=== PATIENT | male | born 1945 | race Caucasian/White ===

== ENCOUNTER 2018-10-10 18:16 | Emergency (ER) | payer MEDICARE, MEDICAID ==
[~2018-10-10] VITALS: Ht 172.7 cm; Wt 105.1 kg
[~2018-10-10 18:16] MED LIST: AMIT25TA23 PO; ASPI-611 PO; DOCU-273 PO; GEMF600T4 PO; HYDR-3968 PO; INSU100V9 SUBCUT; LISI10TA4 PO; METO25TA6 PO; NITR0.4T SL; OMEP-50 PO; SIMV20TA5 PO; TAMS0.4C32 PO
[2018-10-10 18:51] VITALS: BP 118/79
[2018-10-10] MEDS ORDERED: ketorolac trometh inj. 60 MG/2 ML VIAL IM ONE (21:30)
[2018-10-10] MEDS ORDERED: ketorolac trometh. 30mg/ml inj. IM ONE (21:35)
== END 2018-10-10 22:18 | disposition home or self-care (01) ==
LOC: ER 18:17
DX: M25.512 Pain in left shoulder (principal); I25.10 Atherosclerotic heart disease of native coronary artery without angina pectoris; J44.9 Chronic obstructive pulmonary disease, unspecified; K21.9 Gastro-esophageal reflux disease without esophagitis; E11.9 Type 2 diabetes mellitus without complications; G89.29 Other chronic pain; Z90.49 Acquired absence of other specified parts of digestive tract; Z95.1 Presence of aortocoronary bypass graft; Z98.890 Other specified postprocedural states; Z79.82 Long term (current) use of aspirin; Z79.899 Other long term (current) drug therapy; Z79.4 Long term (current) use of insulin; X50.0XXA Overexertion from strenuous movement or load, initial encounter; Y93.89 Activity, other specified; Y92.89 Other specified places as the place of occurrence of the external cause; Y99.9 Unspecified external cause status
CPT/HCPCS: 73030; 93005; 96372; 99283; J1885

== ENCOUNTER 2019-02-28 16:47 | Emergency (ER) | payer MEDICARE, MEDICAID ==
[~2019-02-28] VITALS: Ht 172.7 cm; Wt 100.0 kg
[~2019-02-28 16:47] MED LIST changes: -GEMF600T4 PO; +GEMF600T89 PO
[2019-02-28 16:55] VITALS: BP 156/73
== END 2019-02-28 20:01 | disposition home or self-care (01) ==
LOC: ER 16:47
DX: M25.512 Pain in left shoulder (principal); I25.10 Atherosclerotic heart disease of native coronary artery without angina pectoris; J44.9 Chronic obstructive pulmonary disease, unspecified; K21.9 Gastro-esophageal reflux disease without esophagitis; G89.29 Other chronic pain; M54.9 Dorsalgia, unspecified; E11.9 Type 2 diabetes mellitus without complications; Z95.1 Presence of aortocoronary bypass graft; Z79.82 Long term (current) use of aspirin; Z79.4 Long term (current) use of insulin; W01.0XXA Fall on same level from slipping, tripping and stumbling without subsequent striking against object, initial encounter; Y93.31 Activity, mountain climbing, rock climbing and wall climbing; Y92.828 Other wilderness area as the place of occurrence of the external cause; Y99.8 Other external cause status
CPT/HCPCS: 73030; 99284

== ENCOUNTER 2019-06-18 20:42 | Emergency (ER) | payer MEDICARE, MEDICAID ==
[~2019-06-18] VITALS: Ht 172.7 cm; Wt 104.0 kg
[2019-06-18] MEDS ORDERED: furosemide 20MG tablet PO ONE (20:55)
[2019-06-18 21:25] LABS: ALANINE AMINOTRANSFERASE 31 U/L (12-78); ALBUMIN 3.5 G/DL (3.4-5.0); ALKALINE PHOSPHATASE 64 IU/L (46-116); ANION GAP 9 (8-16); ASPARTATE AMINO TRANSFERASE 21 U/L (10-37); BILIRUBIN,TOTAL 0.4 MG/DL (0.1-1.0); BLOOD UREA NITROGEN 18 MG/DL (7-18); BUN/CREATININE RATIO 13.4 (5.4-32.0); CALCIUM 8.9 MG/DL (8.5-10.1); CHLORIDE 105 MMOL/L (99-107); CREATININE 1.34 MG/DL (0.60-1.10); GLUCOSE 173 MG/DL (70-104); POTASSIUM 4.2 MMOL/L (3.5-5.1); SODIUM 141 MMOL/L (135-145); TOTAL PROTEIN 6.9 G/DL (6.4-8.2); eGFR 52 ML/MIN
[2019-06-18 21:27] LABS: BASOPHILS % (AUTO) 0.4 % (0-1); EOSINOPHILS # (AUTO) 0.3 X10'3 (0-0.9); EOSINOPHILS % (AUTO) 3.6 % (0-6); HEMATOCRIT 40.8 % (42.0-52.0); HEMOGLOBIN 13.8 g/dl (14.0-17.9); LYMPHOCYTES # (AUTO) 1.9 X10'3 (1.1-4.8); LYMPHOCYTES % (AUTO) 26.6 % (21-51); MEAN CORPUSCULAR HEMOGLOBIN 29.1 PG (27.0-31.0); MEAN CORPUSCULAR HGB CONC 33.9 g/dL (33.0-36.5); MEAN CORPUSCULAR VOLUME 85.8 FL (78-98); MEAN PLATELET VOLUME 9.6 FL (7.4-10.4); MONOCYTES # (AUTO) 0.6 X10'3 (0-0.9); MONOCYTES % (AUTO) 8.9 % (2-12); NEUTROPHILS # (AUTO) 4.2 X10'3 (1.8-7.7); NEUTROPHILS % (AUTO) 60.5 % (42-75); PLATELET COUNT 210 X10'3 (140-440); RED BLOOD COUNT 4.76 X10'6 (4.70-6.10); RED CELL DISTRIBUTION WIDTH 15.3 % (11.5-14.5)
[2019-06-18] MEDS ORDERED: POTA10TA19 PO (21:44)
[2019-06-18] MEDS ORDERED: FURO-150 PO (21:44)
[2019-06-18 22:04] VITALS: BP 154/87
== END 2019-06-18 22:05 | disposition home or self-care (01) ==
LOC: ER 20:43
DX: R60.0 Localized edema (principal); I25.10 Atherosclerotic heart disease of native coronary artery without angina pectoris; J43.9 Emphysema, unspecified; K21.9 Gastro-esophageal reflux disease without esophagitis; E11.9 Type 2 diabetes mellitus without complications; G89.29 Other chronic pain; Z90.49 Acquired absence of other specified parts of digestive tract; Z95.1 Presence of aortocoronary bypass graft; Z98.890 Other specified postprocedural states; Z79.82 Long term (current) use of aspirin; Z79.4 Long term (current) use of insulin; Z79.899 Other long term (current) drug therapy
CPT/HCPCS: 36415; 71045; 80053; 83880; 84484; 85025; 93005; 99284

== ENCOUNTER 2019-11-25 09:32 | Emergency (ER) | payer MEDICARE, MEDICAID ==
[~2019-11-25] VITALS: Ht 172.7 cm; Wt 100.0 kg
[~2019-11-25 09:32] MED LIST changes: +FURO-150 PO; +SIMV-42 PO; -SIMV20TA5 PO
[2019-11-25 09:48] VITALS: BP 144/78
[2019-11-25] MEDS ORDERED: ketorolac trometh. 30mg/ml inj. IM ONE (11:30)
[2019-11-25] MEDS ORDERED: LIDOcaine 5% patch TP STA (11:30)
== END 2019-11-25 12:03 | disposition home or self-care (01) ==
LOC: ER 09:32
DX: S39.012A Strain of muscle, fascia and tendon of lower back, initial encounter (principal); M51.36 Other intervertebral disc degeneration, lumbar region; I25.10 Atherosclerotic heart disease of native coronary artery without angina pectoris; J44.9 Chronic obstructive pulmonary disease, unspecified; K21.9 Gastro-esophageal reflux disease without esophagitis; E11.9 Type 2 diabetes mellitus without complications; G89.29 Other chronic pain; R19.7 Diarrhea, unspecified; Z90.49 Acquired absence of other specified parts of digestive tract; Z95.1 Presence of aortocoronary bypass graft; Z98.890 Other specified postprocedural states; Z79.82 Long term (current) use of aspirin; Z79.4 Long term (current) use of insulin; Z79.899 Other long term (current) drug therapy
CPT/HCPCS: 72100; 99283; J1885

== ENCOUNTER 2020-02-14 08:45 | Emergency (ER) | payer MEDICARE, MEDICAID ==
[~2020-02-14] VITALS: Ht 172.7 cm; Wt 98.6 kg
--- NOTE | 2020-02-14 10:08 | NUR ---
CALOS Mishra at bedside.
--- NOTE | 2020-02-14 10:20 | NUR ---
Lab at bedside.
[2020-02-14 10:50] LABS: BASOPHILS % (AUTO) 0.2 % (0-1); EOSINOPHILS # (AUTO) 0.1 X10'3 (0-0.9); HEMATOCRIT 43.9 % (42.0-52.0); HEMOGLOBIN 14.8 g/dl (14.0-17.9); LYMPHOCYTES # (AUTO) 1.4 X10'3 (1.1-4.8); LYMPHOCYTES % (AUTO) 12.3 % (21-51); MEAN CORPUSCULAR HEMOGLOBIN 29.2 PG (27.0-31.0); MEAN CORPUSCULAR HGB CONC 33.8 g/dL (33.0-36.5); MEAN CORPUSCULAR VOLUME 86.6 FL (78-98); MEAN PLATELET VOLUME 9.5 FL (7.4-10.4); MONOCYTES # (AUTO) 0.9 X10'3 (0-0.9); MONOCYTES % (AUTO) 7.7 % (2-12); NEUTROPHILS # (AUTO) 8.9 X10'3 (1.8-7.7); NEUTROPHILS % (AUTO) 78.8 % (42-75); PLATELET COUNT 205 X10'3 (140-440); RED BLOOD COUNT 5.07 X10'6 (4.70-6.10); RED CELL DISTRIBUTION WIDTH 14.2 % (11.5-14.5); WHITE BLOOD COUNT 11.3 X10'3 (4.5-11.0)
[2020-02-14 11:05] LABS: ALANINE AMINOTRANSFERASE 26 U/L (12-78); ALBUMIN 3.7 G/DL (3.4-5.0); ALBUMIN/GLOBULIN RATIO 1.1 (1.1-1.5); ALKALINE PHOSPHATASE 77 IU/L (46-116); ANION GAP 11 (8-16); ASPARTATE AMINO TRANSFERASE 22 U/L (10-37); BILIRUBIN,TOTAL 0.5 MG/DL (0.1-1.0); BLOOD UREA NITROGEN 26 MG/DL (7-18); BUN/CREATININE RATIO 19.4 (5.4-32.0); CALCIUM 8.8 MG/DL (8.5-10.1); CHLORIDE 102 MMOL/L (99-107); CREATININE 1.34 MG/DL (0.60-1.10); GLUCOSE 211 MG/DL (70-104); POTASSIUM 4.4 MMOL/L (3.5-5.1); SODIUM 139 MMOL/L (135-145); TOTAL CARBON DIOXIDE 25.9 MMOL/L (24-32); TOTAL PROTEIN 7.1 G/DL (6.4-8.2); eGFR 52 ML/MIN
[2020-02-14] MEDS ORDERED: piperacillin/tazo 3.375gm/50ml 50 ML IV ONE (11:05)
[2020-02-14] MEDS ORDERED: HYDROcodone/acetaminophen 5mg/325mg tablet PO ONE (11:10)
[2020-02-14] MEDS ORDERED: ketorolac tromethamine 15mg/ml inj. IV ONE (11:35)
--- NOTE | 2020-02-14 11:40 | NUR ---
Toradol 15mg IVP verified with Singh Armstrong RN as medication wouldn't scan.
[2020-02-14] MEDS ORDERED: SULF1TAB49 PO (12:25)
[2020-02-14] MEDS ORDERED: CEPH500C5 PO (12:25)
[2020-02-14 12:31] VITALS: BP 134/71
== END 2020-02-14 12:34 | disposition home or self-care (01) ==
LOC: ER 08:45
DX: L03.114 Cellulitis of left upper limb (principal); I25.10 Atherosclerotic heart disease of native coronary artery without angina pectoris; J43.9 Emphysema, unspecified; K21.9 Gastro-esophageal reflux disease without esophagitis; E11.9 Type 2 diabetes mellitus without complications; G89.29 Other chronic pain; Z79.2 Long term (current) use of antibiotics; Z79.82 Long term (current) use of aspirin; Z79.4 Long term (current) use of insulin; Z79.899 Other long term (current) drug therapy
CPT/HCPCS: 36415; 80053; 84145; 85025; 96365; 96375; 99284; J1885; J2543

== ENCOUNTER 2020-02-16 09:23 | Emergency (ER) | payer MEDICARE, MEDICAID ==
[~2020-02-16] VITALS: Ht 172.7 cm; Wt 100.0 kg
[~2020-02-16 09:23] MED LIST changes: +CEPH500C5 PO; +SULF1TAB49 PO
[2020-02-16] MEDS ORDERED: LIDOcaine 1% W/epiNEPHrine 1:200,000 10ml vial IJ ONE (09:40)
[2020-02-16] MEDS ORDERED: TETanus/Pertussis (Acell)/Diphther VAC/PF (Tdap-Adult) 0.5ml syringe IMVAC ONE (09:40)
[2020-02-16 10:17] LABS: BASOPHILS % (AUTO) 0.3 % (0-1); EOSINOPHILS # (AUTO) 0.2 X10'3 (0-0.9); EOSINOPHILS % (AUTO) 1.7 % (0-6); HEMATOCRIT 42.3 % (42.0-52.0); HEMOGLOBIN 14.2 g/dl (14.0-17.9); LYMPHOCYTES # (AUTO) 1.6 X10'3 (1.1-4.8); LYMPHOCYTES % (AUTO) 15.6 % (21-51); MEAN CORPUSCULAR HEMOGLOBIN 29.2 PG (27.0-31.0); MEAN CORPUSCULAR HGB CONC 33.7 g/dL (33.0-36.5); MEAN CORPUSCULAR VOLUME 86.6 FL (78-98); MEAN PLATELET VOLUME 9.6 FL (7.4-10.4); MONOCYTES # (AUTO) 0.7 X10'3 (0-0.9); MONOCYTES % (AUTO) 6.9 % (2-12); NEUTROPHILS # (AUTO) 7.6 X10'3 (1.8-7.7); NEUTROPHILS % (AUTO) 75.5 % (42-75); PLATELET COUNT 231 X10'3 (140-440); RED BLOOD COUNT 4.88 X10'6 (4.70-6.10); RED CELL DISTRIBUTION WIDTH 14.4 % (11.5-14.5); WHITE BLOOD COUNT 10.1 X10'3 (4.5-11.0)
[2020-02-16 10:23] LABS: ALBUMIN 3.6 G/DL (3.4-5.0); ANION GAP 12 (8-16); BLOOD UREA NITROGEN 38 MG/DL (7-18); CALCIUM 10.1 MG/DL (8.5-10.1); CHLORIDE 101 MMOL/L (99-107); GLUCOSE 296 MG/DL (70-104); POTASSIUM 4.8 MMOL/L (3.5-5.1); SODIUM 136 MMOL/L (135-145); TOTAL CARBON DIOXIDE 22.8 MMOL/L (24-32); eGFR 35 ML/MIN
[2020-02-16 10:42] VITALS: BP 140/89
== END 2020-02-16 14:05 | disposition home or self-care (01) ==
LOC: ER 09:24
DX: L02.512 Cutaneous abscess of left hand (principal); I25.10 Atherosclerotic heart disease of native coronary artery without angina pectoris; J43.9 Emphysema, unspecified; K21.9 Gastro-esophageal reflux disease without esophagitis; E11.9 Type 2 diabetes mellitus without complications; G89.29 Other chronic pain; Z90.49 Acquired absence of other specified parts of digestive tract; Z95.1 Presence of aortocoronary bypass graft; Z98.890 Other specified postprocedural states; Z79.82 Long term (current) use of aspirin; Z79.4 Long term (current) use of insulin; Z79.899 Other long term (current) drug therapy
CPT/HCPCS: 10060; 12011; 36415; 73130; 80048; 84145; 85025; 87070; 87077; 87186; 90471; 90715; 99284

== ENCOUNTER 2020-02-18 08:26 | Emergency (ER) | payer MEDICARE, MEDICAID ==
[~2020-02-18] VITALS: Ht 172.7 cm; Wt 98.0 kg
[2020-02-18 08:28] VITALS: BP 130/73
[2020-02-18] MEDS ORDERED: SULF1TAB49 PO (08:51)
[2020-02-18] MEDS ORDERED: LEVO750T21 PO (09:11)
== END 2020-02-18 09:22 | disposition home or self-care (01) ==
LOC: ER 08:26
DX: L03.114 Cellulitis of left upper limb (principal); I25.10 Atherosclerotic heart disease of native coronary artery without angina pectoris; J43.9 Emphysema, unspecified; K21.9 Gastro-esophageal reflux disease without esophagitis; E11.9 Type 2 diabetes mellitus without complications; G89.29 Other chronic pain; Z86.14 Personal history of Methicillin resistant Staphylococcus aureus infection; Z90.49 Acquired absence of other specified parts of digestive tract; Z95.1 Presence of aortocoronary bypass graft; Z98.890 Other specified postprocedural states; Z79.82 Long term (current) use of aspirin; Z79.4 Long term (current) use of insulin; Z79.899 Other long term (current) drug therapy
CPT/HCPCS: 99283

== ENCOUNTER 2022-10-06 21:20 | Emergency (ER) | payer MEDICARE, MEDICAID ==
[~2022-10-06] VITALS: Ht 172.7 cm; Wt 100.0 kg
[~2022-10-06 21:20] MED LIST changes: -CEPH500C5 PO; +LISI10TA27 PO; -LISI10TA4 PO; +LOP25T PO; -METO25TA6 PO; -OMEP-50 PO; +OMEP20CA16 PO; -SULF1TAB49 PO
[2022-10-06 22:27] VITALS: BP 145/78
== END 2022-10-07 01:38 | disposition left against medical advice (07) ==
LOC: ER 21:21
DX: S61.216A Laceration without foreign body of right little finger without damage to nail, initial encounter (principal); Z53.21 Procedure and treatment not carried out due to patient leaving prior to being seen by health care provider; X58.XXXA Exposure to other specified factors, initial encounter; Y93.9 Activity, unspecified; Y92.9 Unspecified place or not applicable; Y99.9 Unspecified external cause status

== ENCOUNTER 2023-04-10 21:13 | Emergency (ER) | payer MEDICARE, MEDICAID ==
[~2023-04-10] VITALS: Ht 170.2 cm; Wt 85.0 kg
[2023-04-10 21:28] VITALS: BP 124/73
[2023-04-10] MEDS ORDERED: normal saline 1000ml 1,000 ML IV ONE (22:15)
[2023-04-10] MEDS ORDERED: insulin regular, human 10 units/0.1 ml syringe IV ONE (22:15)
[2023-04-10 22:36] LABS: BASOPHILS % (AUTO) 0.3 % (0-1); EOSINOPHILS # (AUTO) 0.2 X10'3 (0-0.9); EOSINOPHILS % (AUTO) 1.9 % (0-6); HEMATOCRIT 40.8 % (42.0-52.0); HEMOGLOBIN 13.8 g/dl (14.0-17.9); LYMPHOCYTES # (AUTO) 1.9 X10'3 (1.1-4.8); LYMPHOCYTES % (AUTO) 21.6 % (21-51); MEAN CORPUSCULAR HEMOGLOBIN 29.5 PG (27.0-31.0); MEAN CORPUSCULAR HGB CONC 33.7 g/dL (33.0-36.5); MEAN CORPUSCULAR VOLUME 87.4 FL (78-98); MEAN PLATELET VOLUME 9.7 FL (7.4-10.4); MONOCYTES # (AUTO) 0.7 X10'3 (0-0.9); MONOCYTES % (AUTO) 7.7 % (2-12); NEUTROPHILS % (AUTO) 68.5 % (42-75); PLATELET COUNT 231 X10'3 (140-440); RED BLOOD COUNT 4.67 X10'6 (4.70-6.10); RED CELL DISTRIBUTION WIDTH 14.1 % (11.5-14.5); WHITE BLOOD COUNT 8.8 X10'3 (4.5-11.0)
[2023-04-10 22:55] LABS: ALANINE AMINOTRANSFERASE 27 U/L (12-78); ALBUMIN 3.9 G/DL (3.4-5.0); ALKALINE PHOSPHATASE 115 IU/L (46-116); ANION GAP 10 (8-16); ASPARTATE AMINO TRANSFERASE 12 U/L (10-37); BILIRUBIN,TOTAL 0.5 MG/DL (0.1-1.0); BLOOD UREA NITROGEN 38 MG/DL (7-18); BUN/CREATININE RATIO 24.2 (10.0-20.0); CALCIUM 9.4 MG/DL (8.5-10.1); CHLORIDE 96 MMOL/L (99-107); CREATININE 1.57 MG/DL (0.60-1.10); MAGNESIUM 2.1 MG/DL (1.5-2.4); POTASSIUM 5.5 MMOL/L (3.5-5.1); SODIUM 131 MMOL/L (135-145); TOTAL CARBON DIOXIDE 24.6 MMOL/L (24-32); TOTAL PROTEIN 7.8 G/DL (6.4-8.2); eGFR 43 ML/MIN
[2023-04-10 23:06] LABS: GLUCOSE 487 MG/DL (70-104)
--- NOTE | 2023-04-10 23:44 | NUR ---
NPR OK FOR DC
== END 2023-04-10 23:45 | disposition home or self-care (01) ==
LOC: ER 21:15
DX: E11.9 Type 2 diabetes mellitus without complications (principal); J43.9 Emphysema, unspecified; G89.29 Other chronic pain; M54.9 Dorsalgia, unspecified; Z86.14 Personal history of Methicillin resistant Staphylococcus aureus infection; Z79.899 Other long term (current) drug therapy
CPT/HCPCS: 36415; 80053; 82948; 83735; 85025; 96361; 96374; 99283; J1815; J7030

== ENCOUNTER 2023-04-23 15:54 | Emergency (ER) | payer MEDICARE, MEDICAID ==
[~2023-04-23] VITALS: Ht 172.7 cm; Wt 96.8 kg
[2023-04-23 16:02] VITALS: BP 147/81
[2023-04-23] MEDS ORDERED: dexamethasone sod phosphate 10mg/ml inj PO STA (20:03)
[2023-04-23] MEDS ORDERED: morphine 4 MG/ML inj SYRINge IM ONE (20:05)
[2023-04-23] MEDS ORDERED: ondansetron 4mg rapidly disintigrating tab PO ONE (20:05)
[2023-04-23] MEDS ORDERED: CYCL-1 PO (21:16)
== END 2023-04-23 21:25 | disposition home or self-care (01) ==
LOC: ER 15:55
DX: M54.50 Low back pain, unspecified (principal); J44.9 Chronic obstructive pulmonary disease, unspecified; K21.9 Gastro-esophageal reflux disease without esophagitis; E11.9 Type 2 diabetes mellitus without complications; Z98.890 Other specified postprocedural states
CPT/HCPCS: 72100; 96372; 99283; J1100; J2270

== ENCOUNTER 2023-12-07 07:34 | Inpatient (IN) | payer MEDICARE, MEDICAID ==
[~2023-12-07] VITALS: Ht 172.7 cm; Wt 89.6 kg
[~2023-12-07 07:34] MED LIST changes: +CYCL-1 PO
[2023-12-07] MEDS: CefTRIAXone/D5W-Rocephin 1gm 50 ML IV ONE (08:55)
[2023-12-07 09:49] LABS: BASOPHILS # (AUTO) 0.1 X10'3 (0-0.2); BASOPHILS % (AUTO) 0.6 % (0-1); EOSINOPHILS % (AUTO) 0.2 % (0-6); HEMATOCRIT 46.5 % (42.0-52.0); HEMOGLOBIN 15.6 g/dl (14.0-17.9); MEAN CORPUSCULAR HEMOGLOBIN 29.1 PG (27.0-31.0); MEAN CORPUSCULAR HGB CONC 33.6 g/dL (33.0-36.5); MEAN CORPUSCULAR VOLUME 86.6 FL (78-98); MEAN PLATELET VOLUME 9.6 FL (7.4-10.4); MONOCYTES # (AUTO) 0.7 X10'3 (0-0.9); MONOCYTES % (AUTO) 5.7 % (2-12); NEUTROPHILS # (AUTO) 10.8 X10'3 (1.8-7.7); NEUTROPHILS % (AUTO) 85.5 % (42-75); PLATELET COUNT 257 X10'3 (140-440); RED BLOOD COUNT 5.37 X10'6 (4.70-6.10); RED CELL DISTRIBUTION WIDTH 14.5 % (11.5-14.5); WHITE BLOOD COUNT 12.6 X10'3 (4.5-11.0)
[2023-12-07 10:31] LABS: ANION GAP 16 (8-16); BLOOD UREA NITROGEN 28 MG/DL (7-18); BUN/CREATININE RATIO 17.9 (10.0-20.0); CALCIUM 9.8 MG/DL (8.5-10.1); CHLORIDE 96 MMOL/L (99-107); CREATININE 1.56 MG/DL (0.60-1.10); GLUCOSE 293 MG/DL (70-104); POTASSIUM 4.2 MMOL/L (3.5-5.1); SODIUM 134 MMOL/L (135-145); TOTAL CARBON DIOXIDE 22.3 MMOL/L (24-32); eCRCL 39 ML/MIN; eGFR 43 ML/MIN
[2023-12-07 10:32] LABS: ALBUMIN 3.9 G/DL (3.4-5.0); PRO BRAIN NATRIURETIC PEPTIDE 713 PG/ML (0-450)
[2023-12-07 10:38] LABS: ACETONE NEGATIVE (NEGATIVE)
[2023-12-07 11:15] LABS: BILIRUBIN,URINE SMALL (Neg); CLARITY,URINE SLIGHTLY CLOUDY (Clear); COLOR,URINE YELLOW (Yellow); GLUCOSE, URINE >=1000 mg/dl (Neg); KETONES,URINE 40 mg/dl (Neg); LEUKOCYTE ESTERASE ,URINE NEGATIVE (Neg); NITRITES, URINE NEGATIVE (Neg); OCCULT BLOOD,URINE TRACE-INTACT (Neg); PH,URINE 5.5 (4.8-8.0); PROTEIN,URINE >=300 mg/dl (Neg); UROBILINOGEN,URINE 0.2 E.U/dL (0.2-1.0)
[2023-12-07 11:28] LABS: UA COLLECTION TYPE STRAIGHT CATH
[2023-12-07 11:38] LABS: BACTERIA,URINE FEW /HPF (Neg); MUCUS STRANDS NONE SEEN /LPF (Neg); RBC,URINE 0-2 /HPF (0-2); SQUAMOUS EPITHELIAL CELL,UR FEW /LPF (FEW); WBC,URINE 0-4 /HPF (0-4)
[2023-12-07 11:39] LABS: RENAL CELLS, URINE MODERATE /HPF
[2023-12-07 14:51] LABS: C DIFF SPECIMEN=DIARRHEA? ACCEPTABLE; C DIFFICILE TOXINS A&B NEGATIVE (Neg)
[2023-12-07 14:52] LABS: C DIFF ANTIGEN NEGATIVE (NEGATIVE)
[2023-12-07] MEDS ORDERED: magnesium 2GM in 50ml NS 50 ML IV PRN (15:30)
[2023-12-07] MEDS ORDERED: dextrose 50%-water 50ml dispensing syringe IV PRN ×2 (15:30)
[2023-12-07] MEDS ORDERED: DEXTROSE 15 GM of carb/4 tabs (each vial/BOTTLE has 4 tablets) PO PRN ×2 (15:30)
[2023-12-07] MEDS ORDERED: glucagon, human recombinant 1mg kit SUBCUT PRN (15:30)
[2023-12-07] MEDS ORDERED: ondansetron/PF 4mg/2ml inj IV PRN (15:30)
[2023-12-07] MEDS ORDERED: potassium Cl 40MEQ/1/2NS 520ml 520 ML IV PRN (15:30)
[2023-12-07] MEDS ORDERED: mag hydrox/Alum hydrox/simeth 30ml oral suspension PO PRN (15:30)
[2023-12-07] MEDS ORDERED: magnesium 4gm in 100ml NS 100 ML IV PRN (15:30)
[2023-12-07] MEDS ORDERED: magnesium hydroxide 30ml (MOM) UD suspension PO PRN (15:30)
[2023-12-07] MEDS ORDERED: potassium Cl 20 mEq SR tablet PO PRN ×2 (15:30)
[2023-12-07] MEDS ORDERED: magnesium Cl slow-release 64mg tablet PO PRN (15:30)
[2023-12-07] MEDS: normal saline 1000ml 1,000 ML IV SCH (15:55)
[2023-12-07] MEDS: MESSAGE TO PHARMACY PO ONE (16:12)
[2023-12-07 17:03] LABS: MAGNESIUM 1.7 MG/DL (1.5-2.4); POTASSIUM 4.1 MMOL/L (3.5-5.1)
[2023-12-07] MEDS: docusate sod 100mg capsule PO SCH (19:33)
[2023-12-07] MEDS: K and/or MAG REPLACEMENT MC SCH (20:00)
[2023-12-07] MEDS: heparin, porcine 5000 units/ml vial SQ SCH (20:44)
[2023-12-07] MEDS: insulin glargine (Lantus) pen - multi-dose SQ SCH (21:01)
[2023-12-07] MEDS: insulin Lispro (HumaLOG) vial - multi-dose SQ SCH (21:03)
[2023-12-07] MEDS: acetaminophen 325mg tablet PO PRN (21:14)
[2023-12-07] MEDS ORDERED: LISI5TAB22 PO (21:25)
[2023-12-07] MEDS ORDERED: FURO-150 PO (21:25)
[2023-12-07] MEDS ORDERED: SITA100T15 PO (21:25)
[2023-12-07] MEDS ORDERED: METF-438 PO (21:25)
[2023-12-07] MEDS ORDERED: POTA-192 PO (21:25)
[2023-12-07] MEDS ORDERED: PREG100C56 PO (21:25)
[2023-12-07] MEDS ORDERED: FLO0.4C (21:25)
[2023-12-07] MEDS ORDERED: INSU100V12 (22:43)
[2023-12-07] MEDS ORDERED: IPRA4AER (22:43)
[2023-12-07] MEDS ORDERED: OXYC1TAB15 PO (22:43)
[2023-12-08] VITALS (9 sets, daily range): BP systolic 116–141; BP diastolic 63–78; PULSE 78–94; RESP 14–26; TEMP 97.4–98; O2SAT 94–98
[2023-12-08 03:57] LABS: BASOPHILS % (AUTO) 0.2 % (0-1); EOSINOPHILS # (AUTO) 0.1 X10'3 (0-0.9); EOSINOPHILS % (AUTO) 1.6 % (0-6); HEMATOCRIT 39.8 % (42.0-52.0); HEMOGLOBIN 13.6 g/dl (14.0-17.9); LYMPHOCYTES # (AUTO) 1.4 X10'3 (1.1-4.8); LYMPHOCYTES % (AUTO) 19.5 % (21-51); MEAN CORPUSCULAR HEMOGLOBIN 29.5 PG (27.0-31.0); MEAN CORPUSCULAR HGB CONC 34.1 g/dL (33.0-36.5); MEAN CORPUSCULAR VOLUME 86.4 FL (78-98); MEAN PLATELET VOLUME 9.6 FL (7.4-10.4); MONOCYTES # (AUTO) 0.9 X10'3 (0-0.9); MONOCYTES % (AUTO) 12.1 % (2-12); NEUTROPHILS # (AUTO) 4.9 X10'3 (1.8-7.7); NEUTROPHILS % (AUTO) 66.6 % (42-75); PLATELET COUNT 204 X10'3 (140-440); RED BLOOD COUNT 4.61 X10'6 (4.70-6.10); RED CELL DISTRIBUTION WIDTH 14.4 % (11.5-14.5); WHITE BLOOD COUNT 7.3 X10'3 (4.5-11.0)
[2023-12-08 04:25] LABS: HEMOGLOBIN A1C 10.3 % (4.5-6.2)
[2023-12-08 04:30] LABS: ALANINE AMINOTRANSFERASE 22 U/L (12-78); ALBUMIN/GLOBULIN RATIO 0.8 (1.1-1.5); ALKALINE PHOSPHATASE 65 IU/L (46-116); ANION GAP 9 (8-16); ASPARTATE AMINO TRANSFERASE 20 U/L (10-37); BILIRUBIN,TOTAL 0.4 MG/DL (0.1-1.0); BLOOD UREA NITROGEN 35 MG/DL (7-18); BUN/CREATININE RATIO 24.1 (10.0-20.0); CALCIUM 8.9 MG/DL (8.5-10.1); CHLORIDE 100 MMOL/L (99-107); CHOLESTEROL 172 MG/DL (0-200); CREATININE 1.45 MG/DL (0.60-1.10); GLUCOSE 271 MG/DL (70-104); HDL CHOLESTEROL 43 MG/DL (35-60); LDL CHOLESTEROL 74 MG/DL (50-100); MAGNESIUM 1.9 MG/DL (1.5-2.4); PHOSPHORUS 3.3 MG/DL (2.3-4.5); SODIUM 135 MMOL/L (135-145); TOTAL CARBON DIOXIDE 25.8 MMOL/L (24-32); TRIGLYCERIDES 325 MG/DL (20-135); eCRCL 39 ML/MIN; eGFR 47 ML/MIN
[2023-12-08] MEDS ORDERED: lisinopril 10 MG tablet PO SCH (08:35)
[2023-12-08] MEDS ORDERED: oxyCODONE/APAP 5-325mg tablet PO PRN (08:55)
[2023-12-08] MEDS: tamsulosin 0.4mg capsule PO SCH (09:28)
[2023-12-08] MEDS: lisinopril 5mg tablet PO SCH (09:28)
[2023-12-08] MEDS: ipratropium/albuterol 3ml nebule IH PRN (10:03)
[2023-12-08] MEDS: levoFLOXACIN-Levaquin 500mg/D5 100 ML IV SCH (11:38)
[2023-12-08] MEDS: pregabalin 25mg capsule PO SCH (13:12)
[2023-12-08] MEDS: metroNIDAZOLE 500mg tablet PO SCH (16:21)
[2023-12-08] MEDS: metoprolol tartrate 25mg tablet PO SCH (20:25)
[2023-12-08] MEDS: gemfibrozil 600mg tablet PO SCH (20:29)
[2023-12-08] MEDS ORDERED: warfarin 5mg tablet PO ONE (21:00)
[2023-12-09] VITALS (8 sets, daily range): BP systolic 126–145; BP diastolic 62–73; PULSE 72–86; RESP 2–24; TEMP 97.3–98.2; O2SAT 95–98
[2023-12-09 06:23] LABS: BASOPHILS % (AUTO) 0.3 % (0-1); EOSINOPHILS # (AUTO) 0.2 X10'3 (0-0.9); EOSINOPHILS % (AUTO) 2.9 % (0-6); HEMATOCRIT 36.5 % (42.0-52.0); HEMOGLOBIN 12.7 g/dl (14.0-17.9); LYMPHOCYTES # (AUTO) 1.4 X10'3 (1.1-4.8); MEAN CORPUSCULAR HEMOGLOBIN 30.1 PG (27.0-31.0); MEAN CORPUSCULAR HGB CONC 34.9 g/dL (33.0-36.5); MEAN CORPUSCULAR VOLUME 86.4 FL (78-98); MEAN PLATELET VOLUME 9.9 FL (7.4-10.4); MONOCYTES # (AUTO) 0.5 X10'3 (0-0.9); MONOCYTES % (AUTO) 9.7 % (2-12); NEUTROPHILS # (AUTO) 3.4 X10'3 (1.8-7.7); NEUTROPHILS % (AUTO) 62.1 % (42-75); PLATELET COUNT 187 X10'3 (140-440); RED BLOOD COUNT 4.23 X10'6 (4.70-6.10); RED CELL DISTRIBUTION WIDTH 14.3 % (11.5-14.5); WHITE BLOOD COUNT 5.4 X10'3 (4.5-11.0)
[2023-12-09 07:16] LABS: BLOOD UREA NITROGEN 24 MG/DL (7-18); BUN/CREATININE RATIO 21.4 (10.0-20.0); CHLORIDE 101 MMOL/L (99-107); CREATININE 1.12 MG/DL (0.60-1.10); GLUCOSE 278 MG/DL (70-104); PHOSPHORUS 2.7 MG/DL (2.3-4.5); POTASSIUM 4.1 MMOL/L (3.5-5.1); SODIUM 135 MMOL/L (135-145); eCRCL 51 ML/MIN; eGFR 63 ML/MIN
[2023-12-09 07:27] LABS: ALANINE AMINOTRANSFERASE 46 U/L (12-78); ALBUMIN 3.1 G/DL (3.4-5.0); ALBUMIN/GLOBULIN RATIO 0.8 (1.1-1.5); ALKALINE PHOSPHATASE 67 IU/L (46-116); ANION GAP 10 (8-16); ASPARTATE AMINO TRANSFERASE 65 U/L (10-37); BILIRUBIN,TOTAL 0.3 MG/DL (0.1-1.0); CALCIUM 8.6 MG/DL (8.5-10.1); MAGNESIUM 1.7 MG/DL (1.5-2.4); TOTAL PROTEIN 7.2 G/DL (6.4-8.2)
[2023-12-09] MEDS: aspirin 81mg, enteric-coated 1 TAB TABLET.DR PO SCH (08:13)
[2023-12-09] MEDS: amitriptyline 25mg tablet PO SCH (08:14)
[2023-12-09] MEDS: atorvastatin 10mg tablet PO SCH (08:14)
[2023-12-10 02:00] VITALS: BP 124/70; PULSE 77; RESP 16; TEMP 97.3; O2SAT 95
[2023-12-10 06:18] LABS: BASOPHILS % (AUTO) 0.4 % (0-1); EOSINOPHILS # (AUTO) 0.2 X10'3 (0-0.9); EOSINOPHILS % (AUTO) 3.5 % (0-6); HEMATOCRIT 36.8 % (42.0-52.0); HEMOGLOBIN 12.5 g/dl (14.0-17.9); LYMPHOCYTES # (AUTO) 1.5 X10'3 (1.1-4.8); LYMPHOCYTES % (AUTO) 28.4 % (21-51); MEAN CORPUSCULAR HGB CONC 34.1 g/dL (33.0-36.5); MEAN PLATELET VOLUME 9.1 FL (7.4-10.4); MONOCYTES # (AUTO) 0.4 X10'3 (0-0.9); MONOCYTES % (AUTO) 8.3 % (2-12); NEUTROPHILS # (AUTO) 3.1 X10'3 (1.8-7.7); NEUTROPHILS % (AUTO) 59.4 % (42-75); PLATELET COUNT 219 X10'3 (140-440); RED BLOOD COUNT 4.33 X10'6 (4.70-6.10); RED CELL DISTRIBUTION WIDTH 14.2 % (11.5-14.5); WHITE BLOOD COUNT 5.2 X10'3 (4.5-11.0)
[2023-12-10 06:26] LABS: ALANINE AMINOTRANSFERASE 41 U/L (12-78); ALBUMIN 2.7 G/DL (3.4-5.0); ALBUMIN/GLOBULIN RATIO 0.8 (1.1-1.5); ALKALINE PHOSPHATASE 58 IU/L (46-116); ANION GAP 10 (8-16); ASPARTATE AMINO TRANSFERASE 41 U/L (10-37); BILIRUBIN,TOTAL 0.2 MG/DL (0.1-1.0); BLOOD UREA NITROGEN 20 MG/DL (7-18); BUN/CREATININE RATIO 21.3 (10.0-20.0); CALCIUM 8.2 MG/DL (8.5-10.1); CHLORIDE 106 MMOL/L (99-107); CREATININE 0.94 MG/DL (0.60-1.10); GLUCOSE 193 MG/DL (70-104); MAGNESIUM 1.6 MG/DL (1.5-2.4); PHOSPHORUS 3.2 MG/DL (2.3-4.5); SODIUM 137 MMOL/L (135-145); TOTAL CARBON DIOXIDE 20.7 MMOL/L (24-32); TOTAL PROTEIN 6.2 G/DL (6.4-8.2); eCRCL 61 ML/MIN; eGFR 77 ML/MIN
[2023-12-10 07:00] VITALS: RESP 16; O2SAT 97
[2023-12-10 07:04] VITALS: BP 127/78; PULSE 74; RESP 16; TEMP 97.8; O2SAT 97
[2023-12-10] MEDS: levoFLOXACIN-Levaquin 250mg/D5 50 ML IV SCH (07:17)
[2023-12-10] MEDS ORDERED: METR-159 PO (10:46)
[2023-12-10] MEDS ORDERED: LEVO750T68 PO (10:46)
[2023-12-10 11:40] VITALS: BP 143/68; PULSE 77; RESP 14; TEMP 97.3; O2SAT 95
== END 2023-12-10 14:28 | disposition home health service (06) | DRG 871 ==
LOC: ER 07:34 → ED HOLD 15:35 → PCU 3S 12-08 03:50
PROVIDERS: ADMIT Internal Medicine; ATTEND Internal Medicine
PROC: 5A09357 Assistance with Respiratory Ventilation, Less than 24 Consecutive Hours, Continuous Positive Airway Pressure (ICD-10-PCS; principal; 2023-12-08)
PROC: 5A09357 Assistance with Respiratory Ventilation, Less than 24 Consecutive Hours, Continuous Positive Airway Pressure (ICD-10-PCS; 2023-12-10)
DX: A41.9 Sepsis, unspecified organism (principal); G93.41 Metabolic encephalopathy; N17.0 Acute kidney failure with tubular necrosis; A03.3 Shigellosis due to Shigella sonnei; R65.10 Systemic inflammatory response syndrome (SIRS) of non-infectious origin without acute organ dysfunction; N18.9 Chronic kidney disease, unspecified; I25.10 Atherosclerotic heart disease of native coronary artery without angina pectoris; E88.810 Metabolic syndrome; N40.0 Benign prostatic hyperplasia without lower urinary tract symptoms; I50.9 Heart failure, unspecified; E11.22 Type 2 diabetes mellitus with diabetic chronic kidney disease; Z88.8 Allergy status to other drugs, medicaments and biological substances; Z79.899 Other long term (current) drug therapy
CPT/HCPCS: 36415; 70450; 71045; 74176; 80048; 80053; 80061; 81001; 82009; 82948; 83036; 83605; 83735; 83880; 83930; 84100; 84132; 84145; 84484; 85025; 87040; 87045; 87046; 87077; 87081; 87324; 87449; 89055; 93005; 93306; 94640; 94760; 97161; 97530; 99285; G0378; J0696; J1644; J1815; J1956; J7030

== ENCOUNTER 2024-04-26 11:56 | Emergency (ER) | payer MEDICARE, MEDICAID ==
[~2024-04-26] VITALS: Ht 170.2 cm; Wt 100.2 kg
[~2024-04-26 11:56] MED LIST changes: +INSU100V12; +IPRA4AER; -LISI10TA27 PO; +LISI5TAB22 PO; +METF-438 PO; +OXYC1TAB15 PO; +POTA-192 PO; +PREG100C56 PO; +SITA100T15 PO
[2024-04-26 11:57] VITALS: BP 159/86; PULSE 67; RESP 18; TEMP 98.2; O2SAT 97
[2024-04-26] MEDS ORDERED: DOXY100C77 PO (13:28)
[2024-04-26] MEDS: DOXYCYCLINE 100MG CAPSULE PO STA (13:42)
== END 2024-04-26 13:58 | disposition home or self-care (01) ==
LOC: ER 11:56
DX: M70.41 Prepatellar bursitis, right knee (principal); I25.10 Atherosclerotic heart disease of native coronary artery without angina pectoris; J44.9 Chronic obstructive pulmonary disease, unspecified; K21.9 Gastro-esophageal reflux disease without esophagitis; E11.9 Type 2 diabetes mellitus without complications; G89.29 Other chronic pain; M54.9 Dorsalgia, unspecified; Z90.49 Acquired absence of other specified parts of digestive tract; Z95.1 Presence of aortocoronary bypass graft; Z98.890 Other specified postprocedural states; Z79.899 Other long term (current) drug therapy; Z79.82 Long term (current) use of aspirin; Z79.4 Long term (current) use of insulin; Z79.84 Long term (current) use of oral hypoglycemic drugs; Y93.89 Activity, other specified
CPT/HCPCS: 73564; 99283

== ENCOUNTER 2024-04-30 03:39 | Emergency (ER) | payer MEDICARE, MEDICAID ==
[~2024-04-30] VITALS: Ht 172.7 cm; Wt 95.7 kg
[~2024-04-30 03:39] MED LIST changes: +DOXY100C77 PO
[2024-04-30 03:43] VITALS: TEMP 98.1
[2024-04-30] MEDS: ketorolac tromethamine 15mg/ml inj. IV ONE (05:49)
[2024-04-30] MEDS: acetaminophen 325mg tablet PO ONE (05:49)
[2024-04-30] MEDS: ketorolac trometh. 30mg/ml inj. IV ONE (05:50)
[2024-04-30] MEDS: normal saline 1000ml 1,000 ML IV ONE (05:50)
[2024-04-30 06:07] LABS: BASOPHILS # (AUTO) 0.2 X10'3 (0-0.2); EOSINOPHILS # (AUTO) 0.3 X10'3 (0-0.9); EOSINOPHILS % (AUTO) 3.1 % (0-6); HEMATOCRIT 41.1 % (42.0-52.0); HEMOGLOBIN 13.9 g/dl (14.0-17.9); LYMPHOCYTES % (AUTO) 11.3 % (21-51); MEAN CORPUSCULAR HEMOGLOBIN 29.5 PG (27.0-31.0); MEAN CORPUSCULAR HGB CONC 33.9 g/dL (33.0-36.5); MEAN CORPUSCULAR VOLUME 87.1 FL (78-98); MEAN PLATELET VOLUME 9.4 FL (7.4-10.4); MONOCYTES # (AUTO) 0.8 X10'3 (0-0.9); MONOCYTES % (AUTO) 9.1 % (2-12); NEUTROPHILS # (AUTO) 6.3 X10'3 (1.8-7.7); NEUTROPHILS % (AUTO) 74.5 % (42-75); PLATELET COUNT 229 X10'3 (140-440); RED BLOOD COUNT 4.71 X10'6 (4.70-6.10); RED CELL DISTRIBUTION WIDTH 14.7 % (11.5-14.5); WHITE BLOOD COUNT 8.4 X10'3 (4.5-11.0)
[2024-04-30 06:39] LABS: ANION GAP 13 (8-16); BLOOD UREA NITROGEN 33 MG/DL (7-18); BUN/CREATININE RATIO 25.4 (10.0-20.0); C-REACTIVE PROTEIN 0.99 MG/DL (0.0-0.5); CALCIUM 9.7 MG/DL (8.5-10.1); CHLORIDE 100 MMOL/L (99-107); GLUCOSE 278 MG/DL (70-104); MAGNESIUM 1.6 MG/DL (1.5-2.4); POTASSIUM 4.6 MMOL/L (3.5-5.1); SODIUM 137 MMOL/L (135-145); TOTAL CARBON DIOXIDE 24.1 MMOL/L (24-32); eCRCL 44 ML/MIN; eGFR 53 ML/MIN
[2024-04-30 06:46] LABS: URIC ACID 7.9 MG/DL (3.5-7.2)
[2024-04-30] MEDS: oxyCODONE/APAP 10/325mg tablet PO ONE (08:35)
[2024-04-30] MEDS ORDERED: LIDOcaine 1% W/epiNEPHrine 1:200,000 10ml vial IJ ONE (09:40)
[2024-04-30] MEDS: LIDOcaine 1% W/epiNEPHrine 1:100,000 20ml vial IJ ONE (09:55)
[2024-04-30] MEDS ORDERED: TRAM50TA2 PO (10:13)
[2024-04-30 12:08] VITALS: BP 141/90; PULSE 73; RESP 18; O2SAT 98
== END 2024-04-30 12:12 | disposition home or self-care (01) ==
LOC: ER 03:40
DX: M70.41 Prepatellar bursitis, right knee (principal); M25.561 Pain in right knee; I25.10 Atherosclerotic heart disease of native coronary artery without angina pectoris; J44.9 Chronic obstructive pulmonary disease, unspecified; K21.9 Gastro-esophageal reflux disease without esophagitis; E11.9 Type 2 diabetes mellitus without complications; G89.29 Other chronic pain; M54.9 Dorsalgia, unspecified; Z79.899 Other long term (current) drug therapy; Z79.4 Long term (current) use of insulin; Z79.84 Long term (current) use of oral hypoglycemic drugs; Z79.82 Long term (current) use of aspirin; Z79.2 Long term (current) use of antibiotics; Z90.49 Acquired absence of other specified parts of digestive tract; Z98.890 Other specified postprocedural states; Z95.1 Presence of aortocoronary bypass graft; Y93.89 Activity, other specified
CPT/HCPCS: 20611; 36415; 80048; 82948; 83735; 84145; 84550; 85025; 85651; 86140; 96374; 97161; 97530; 99285; A6402; A6449; J1885; J3490; J7030; Z7610

== ENCOUNTER 2024-04-30 16:57 | Emergency (ER) | payer MEDICARE, MEDICAID ==
[~2024-04-30] VITALS: Ht 172.7 cm; Wt 100.0 kg
[~2024-04-30 16:57] MED LIST changes: +TRAM50TA2 PO
[2024-04-30] MEDS: HYDROcodone/acetaminophen 5mg/325mg tablet PO ONE (19:48)
[2024-04-30 19:54] VITALS: BP 142/84; PULSE 82; RESP 18; TEMP 98.2; O2SAT 96
== END 2024-04-30 19:57 | disposition home or self-care (01) ==
LOC: ER 16:58
DX: M70.41 Prepatellar bursitis, right knee (principal); I25.10 Atherosclerotic heart disease of native coronary artery without angina pectoris; J44.9 Chronic obstructive pulmonary disease, unspecified; K21.9 Gastro-esophageal reflux disease without esophagitis; E11.9 Type 2 diabetes mellitus without complications; G89.29 Other chronic pain; M54.9 Dorsalgia, unspecified; Z90.49 Acquired absence of other specified parts of digestive tract; Z95.1 Presence of aortocoronary bypass graft; Z98.890 Other specified postprocedural states; Z79.899 Other long term (current) drug therapy; Z79.82 Long term (current) use of aspirin; Z79.84 Long term (current) use of oral hypoglycemic drugs; Z79.4 Long term (current) use of insulin; Z79.2 Long term (current) use of antibiotics; Y93.89 Activity, other specified
CPT/HCPCS: 99284